=== PATIENT | male | born 1990 | race American Indian/Alaskan Native ===

== ENCOUNTER 2017-04-04 15:18 | Emergency (ER) | payer SELFPAY ==
[2017-04-04 15:33] VITALS: BP 130/82
[2017-04-04 15:51] LABS: Basophils % (Auto) 0.4 % (0.0-1.8); Eosinophils % (Auto) 3.1 % (0.0-4.3); Hematocrit 42.1 % (35.5-45.6); Hemoglobin 14.3 gm/dl (11.8-15.2); Mean Corpuscular HGB Conc 34 % (32-34); Mean Corpuscular Hemoglobin 29 pg (28-32); Mean Corpuscular Volume 86 fl (84-94); Platelet Count 270 K/mm3 (140-440); Red Blood Count 4.89 M/mm3 (3.65-5.03); Red Cell Distribution Width 13.8 % (13.2-15.2); White Blood Count 5.3 K/mm3 (4.5-11.0)
[2017-04-04 16:10] LABS: Anion Gap 16 mmol/L; BUN/Creatinine Ratio 14.44; Blood Urea Nitrogen 13 mg/dL (9-20); Calcium 9.4 mg/dL (8.4-10.2); Carbon Dioxide 27 mmol/L (22-30); Chloride 108.4 mmol/L (98-107); Glucose 100 mg/dL (75-100); Potassium 4.6 mmol/L (3.6-5.0); Sodium 147 mmol/L (137-145)
--- NOTE | 2017-04-04 16:15 | XRay Report ---
Chest 2 views: History: Shortness of breath. Findings: Normal cardiomediastinal silhouette. Trachea is midline. No consolidation, pneumothorax or pleural effusion. Next Impression: No acute cardiopulmonary findings
--- NOTE | 2017-04-04 18:30 | Emergency Department Report ---
ED Shortness of Breath HPI - General Chief Complaint: Upper Respiratory Infection Stated Complaint: BREATHING PROBLEMS Time Seen by Provider: 04/04/17 18:20 Source: patient Mode of arrival: Ambulatory Limitations: No Limitations - History of Present Illness Initial Comments: 26-year-old male with no significant past medical history coming with 3 weeks history of cough and congestion difficulty breathing. Patient denied any fever nausea or vomiting. No other complaint at this moment. MD Complaint: shortness of breath, cough -: week(s) - Related Data Allergies Allergy/AdvReac Type Severity Reaction Status Date / Time No Known Allergies Allergy Unverified 04/04/17 15:33 ED Review of Systems ROS: Stated complaint: BREATHING PROBLEMS Other details as noted in HPI Comment: All other systems reviewed and negative Constitutional: denies: chills, fever ENT: denies: throat pain Respiratory: cough, shortness of breath Cardiovascular: denies: chest pain, palpitations Gastrointestinal: denies: abdominal pain, nausea, vomiting Neurological: denies: headache ED Past Medical Hx - Past Medical History Previous Medical History?: No - Social History Smoking Status: Current Every Day Smoker ED Physical Exam - General Limitations: No Limitations General appearance: alert, in no apparent distress - ENT ENT exam: Present: other (bilateral maxillary tenderness) - Neck Neck exam: Present: normal inspection - Respiratory Respiratory exam: Present: normal lung sounds bilaterally, decreased breath sounds. Absent: wheezes - Cardiovascular Cardiovascular Exam: Present: regular rate, normal rhythm, normal heart sounds - GI/Abdominal GI/Abdominal exam: Present: soft. Absent: tenderness - Neurological Exam Neurological exam: Present: alert, oriented X3, CN II-XII intact ED Course Vital Signs 04/04/17 15:25 Temperature 98.8 F Pulse Rate 83 Blood Pressure 130/82 O2 Sat by Pulse 99 Oximetry - Reevaluation(s) Reevaluation #1: 04/04/17 18:28 Patient in no acute distress. Blood works reviewed as no significant abnormalities chest x-ray negative too. ED Medical Decision Making - Lab Data Result diagrams: 04/04/17 15:36 04/04/17 15:36 Critical care attestation.: If time is entered above; I have spent that time in minutes in the direct care of this critically ill patient, excluding procedure time. ED Disposition Clinical Impression: Shortness of breath, Acute bronchitis, Sinusitis Disposition: DC-01 TO HOME OR SELFCARE Is pt being admited?: No Condition: Stable Instructions: Acute Bronchitis (ED), Sinusitis (ED) Referrals: PRIMARY CARE,MD [Primary Care Provider] - 3-5 Days
== END 2017-04-04 18:47 | disposition home or self-care (01) ==
LOC: ED 15:18
DX: J20.9 Acute bronchitis, unspecified (principal); R06.02 Shortness of breath; J32.9 Chronic sinusitis, unspecified; F17.200 Nicotine dependence, unspecified, uncomplicated
CPT/HCPCS: 36415; 71020; 80048; 85025; 99283